=== PATIENT | female | born 1980 | race Caucasian/White ===

== ENCOUNTER 2016-10-11 19:51 | Emergency (ER) | payer OTHER ==
[~2016-10-11] VITALS: Ht 172.7 cm; Wt 77.1 kg
[~2016-10-11 19:51] MED LIST: COLA100C PO; EFFE37.527 PO; FLINCHW9 PO; MIRA3350 PO; MOTR200T44 PO; MULT1CHW26 PO; NORCOTAB PO; TRAM50TA2 PO; VITA-112 PO; XANA0.25 PO; flexeril PO
[2016-10-11] MEDS ORDERED: SYNT112T2 PO (20:14)
[2016-10-11] MEDS ORDERED: EFFE150C PO (20:14)
[2016-10-11] MEDS ORDERED: NS 1,000 ML IV ONE (22:30)
[2016-10-11] MEDS ORDERED: METOCLOPRAMIDE INJ 10MG/2ML VIAL (J2765) IV ONE (22:30)
[2016-10-11 23:20] LABS: WHITE BLOOD COUNT 8.1 K/mm3 (4.0-10.0)
[2016-10-11 23:21] LABS: BASO % 0.3 % (0.0-1.0); EOS # 0.1 K/mm3 (0.0-0.50); EOS % 0.8 % (0.0-3.0); LARGE UNSTAINED CELL # 0.1 K/mm3 (0.0-0.4); LARGE UNSTAINED CELL % 0.8 % (0.0-4.0); LYMPH # 1.4 K/mm3 (1.5-4.5); LYMPH % 17.8 % (24.0-44.0); MEAN CORPUSCULAR HEMOGLOBIN 28.1 pg (27.0-33.0); MEAN CORPUSCULAR HGB CONC 34.2 g/dl (32.0-36.5); MEAN CORPUSCULAR VOLUME 82.3 fl (80.0-96.0); MONO # 0.4 K/mm3 (0.0-0.8); MONO % 4.4 % (0.0-5.0); NEUTROPHILS # 6.1 K/mm3 (1.8-7.7); NEUTROPHILS % 75.8 % (36.0-66.0); PLATELET COUNT, AUTOMATED 203 k/mm3 (150-450); RED CELL DISTRIBUTION WIDTH 12.5 % (11.5-14.5)
[2016-10-11 23:42] LABS: ANION GAP 10 MEQ/L (8-16); BLOOD UREA NITROGEN 6 MG/DL (7-18); CALCIUM LEVEL 9.2 MG/DL (8.5-10.1); CARBON DIOXIDE LEVEL 26 MEQ/L (21-32); CHLORIDE LEVEL 103 MEQ/L (98-107); CREATININE FOR GFR 0.61 MG/DL (0.55-1.02); GLOMERULAR FILTRATION RATE > 60.0 (>60); GLUCOSE, FASTING 99 MG/DL (70-105); POTASSIUM SERUM 3.7 MEQ/L (3.5-5.1); SODIUM LEVEL 139 MEQ/L (136-145)
[2016-10-12 00:42] VITALS: BP 102/62
== END 2016-10-12 00:46 | disposition home or self-care (01) ==
LOC: M ED 20:53
DX: O21.0 Mild hyperemesis gravidarum (principal); Z3A.09 9 weeks gestation of pregnancy; Z88.0 Allergy status to penicillin; Z79.899 Other long term (current) drug therapy; Z87.891 Personal history of nicotine dependence; E03.9 Hypothyroidism, unspecified; O99.281 Endocrine, nutritional and metabolic diseases complicating pregnancy, first trimester; O99.341 Other mental disorders complicating pregnancy, first trimester; F41.9 Anxiety disorder, unspecified; F32.9 Major depressive disorder, single episode, unspecified
CPT/HCPCS: 36415; 80048; 81001; 84702; 85025; 87086; 87880; 96361; 96374; 99283; J2765